=== PATIENT | male | born 1990 | race Hispanic/Latino ===

== ENCOUNTER 2021-06-13 21:23 | Inpatient (IN) | payer BC, MEDICARE ==
[2021-06-13 22:23] LABS: #Eosinphils 0.2 thou/uL (0.0-0.7); #Lymphocytes 0.8 thou/uL (1.20-3.40); #Monocytes 0.6 thou/uL (0.11-0.59); #Neutrophils 10.4 thou/uL (1.40-6.50); %Basophils 0.3 % (0.0-1.0); %Eosinophils 1.8 % (0.0-10.0); %Lymphocytes 6.9 % (21.0-51.0); %Monocytes 4.7 % (0.0-10.0); %Neutrophils 86.4 % (42.0-75.0); Hemoglobin 13.7 g/dL (14.0-18.0); Mean Corpuscular HGB CONC 33.2 g/dL (32.0-36.0); Mean Corpuscular Hemoglobin 29.4 pg (27.0-31.0); Mean Corpuscular Volume 88.3 fL (78.0-98.0); Mean Platelet Volume 8.5 fL (7.4-10.4); Platelet Count 240 thou/uL (130-400); RBC Distribution Width 13.8 % (11.5-14.5); Red Blood Cell (RBC) Count 4.67 mill/uL (4.70-6.10)
[2021-06-13 22:45] LABS: ALT (SGPT) 53 U/L (8-55); AST (SGOT) 55 U/L (5-34); Albumin 3.6 g/dL (3.5-5.0); Alkaline Phosphatase 110 U/L (40-110); Anion Gap 10 mmol/L (10-20); BUN (Urea Nitrogen) 49 mg/dL (8.9-20.6); Bilirubin, Total 0.5 mg/dL (0.2-1.2); CK (CPK) 237 U/L (30-200); Calc. Creatinine Clearance 0 mL/min (70-130); Calcium 8.3 mg/dL (7.8-10.44); Carbon Dioxide 28 mmol/L (22-29); Chloride 101 mmol/L (98-107); Globulin 3.7 g/dL (2.4-3.5); Glucose 289 mg/dL (70-105); Protein, Total 7.3 g/dL (6.0-8.3); Sodium 132 mmol/L (136-145)
[2021-06-13 22:49] LABS: Potassium 7.1 mmol/L (3.5-5.1)
[2021-06-13] MEDS ORDERED: Albuterol Sulfate 2.5 mg/3 ml Neb ONE (22:57)
[2021-06-13] MEDS ORDERED: Insulin Regular 300 UNITS/3 ML VIAL ONE (22:58)
[2021-06-13] MEDS ORDERED: Calcium Chloride 1 GM/10 ML Abboject SYRINGE ONE (22:58)
[2021-06-13] MEDS ORDERED: Sodium Bicarb 50 MEQ/50 ML Abboject 8.4% SYRINGE ONE (22:58)
[2021-06-14] MEDS ORDERED: LOKELMA 10 GM PACKET PO SCH ×2 (00:45→09:00)
[2021-06-14] MEDS ORDERED: Ondansetron PF 4 MG/2 ML Vial IVP PRN (01:52)
[2021-06-14] MEDS ORDERED: Acetaminophen 325 MG TAB PO PRN (01:52)
[2021-06-14] MEDS ORDERED: Dextrose 50% Abboject 50 ML SYRINGE SLOW IVP PRN (02:04)
[2021-06-14] MEDS ORDERED: Dextrose 5% in Water 1,000 ML IV PRN (02:04)
[2021-06-14] MEDS ORDERED: HumaLOG 300 UNITS/3 ML VIAL SC PRN ×2 (02:04)
[2021-06-14] MEDS ORDERED: hydrALAZINE 20 MG/ML VIAL SLOW IVP PRN (02:36)
[2021-06-14 02:46] VITALS: BMI 41.5
[2021-06-14 03:20] LABS: Bacteria/HPF None Seen HPF (None Seen); Bilirubin Negative (Negative); Blood, Urine Trace (Negative); Clarity Clear (Clear); Glucose, Urine (Dipstick) 70 mg/dL (Negative); Ketone, Urine Negative (Negative); Leukocyte Negative Leu/uL (Negative); Nitrite Negative (Negative); Protein, Urine (Dipstick) 100 mg/dL (Neg-Trace); RBC/HPF 0-3 HPF (0-3); Specific Gravity, Urine 1.008 (1.002-1.036); Squamous Epithelial 0-3 HPF (0-3); Urobilinogen Normal mg/dL (Less than 2); WBC/HPF 0-3 HPF (0-3); pH, Urine 7.5 (5.0-9.0)
[2021-06-14 03:23] LABS: Urine Culture Reflex No No
[2021-06-14 03:38] LABS: SARS-CoV-2 NAA Rapid Test Not Detected (NotDetected)
[2021-06-14 04:21] LABS: #Basophils 0.1 thou/uL (0.0-0.2); #Eosinphils 0.1 thou/uL (0.0-0.7); #Lymphocytes 1.3 thou/uL (1.20-3.40); #Monocytes 0.7 thou/uL (0.11-0.59); #Neutrophils 9.5 thou/uL (1.40-6.50); %Basophils 0.4 % (0.0-1.0); %Eosinophils 1.3 % (0.0-10.0); %Lymphocytes 10.7 % (21.0-51.0); %Monocytes 6.3 % (0.0-10.0); %Neutrophils 81.3 % (42.0-75.0); Hemoglobin 13.9 g/dL (14.0-18.0); Mean Corpuscular HGB CONC 32.5 g/dL (32.0-36.0); Mean Corpuscular Hemoglobin 28.7 pg (27.0-31.0); Mean Corpuscular Volume 88.2 fL (78.0-98.0); Mean Platelet Volume 8.6 fL (7.4-10.4); Platelet Count 233 thou/uL (130-400); RBC Distribution Width 13.8 % (11.5-14.5); Red Blood Cell (RBC) Count 4.85 mill/uL (4.70-6.10); White Blood Cell (WBC) Count 11.7 thou/uL (4.8-10.8)
[2021-06-14 04:47] LABS: Anion Gap 11 mmol/L (10-20); BUN (Urea Nitrogen) 41 mg/dL (8.9-20.6); Calc. Creatinine Clearance 104 mL/min (70-130); Carbon Dioxide 24 mmol/L (22-29); Chloride 104 mmol/L (98-107); Glucose 146 mg/dL (70-105); Potassium 4.2 mmol/L (3.5-5.1); Sodium 135 mmol/L (136-145)
[2021-06-14] MEDS ORDERED: Heparin 5,000 UNITS/ML VIAL SC SCH (09:00)
[2021-06-14] MEDS ORDERED: Famotidine 20 MG TAB PO SCH (09:00)
[2021-06-14] MEDS ORDERED: Torsemide 20 MG TAB PO SCH (09:15)
[2021-06-14] MEDS ORDERED: Famotidine 20 MG TAB ONE (10:19)
[2021-06-14 12:42] LABS: Anion Gap 14 mmol/L (10-20); BUN (Urea Nitrogen) 39 mg/dL (8.9-20.6); Calc. Creatinine Clearance 109 mL/min (70-130); Calcium 9.1 mg/dL (7.8-10.44); Carbon Dioxide 23 mmol/L (22-29); Chloride 103 mmol/L (98-107); Glucose 127 mg/dL (70-105); Potassium 4.1 mmol/L (3.5-5.1); Sodium 136 mmol/L (136-145)
[2021-06-14] MEDS ORDERED: Carvedilol 25 MG TAB PO SCH ×2 (17:00)
[2021-06-14] MEDS ORDERED: Senokot S 8.6-50 MG TAB PO SCH (21:00)
[2021-06-15] MEDS ORDERED: Carvedilol 25 MG TAB PO SCH (08:00)
[2021-06-15] MEDS ORDERED: Torsemide 20 MG TAB PO SCH (09:00)
== END 2021-06-14 15:31 | disposition home or self-care (01) | DRG 641 ==
LOC: ERS 21:23 → ERHOLD 06-14 00:53 → OBSVTOIN 06-14 02:37
PROVIDERS: ADMIT Internal Medicine; ATTEND Internal Medicine
DX: E87.5 Hyperkalemia (principal); N17.9 Acute kidney failure, unspecified; I13.0 Hypertensive heart and chronic kidney disease with heart failure and stage 1 through stage 4 chronic kidney disease, or unspecified chronic kidney disease; Z68.41 Body mass index [BMI] 40.0-44.9, adult; E87.1 Hypo-osmolality and hyponatremia; I50.9 Heart failure, unspecified; E11.22 Type 2 diabetes mellitus with diabetic chronic kidney disease; N18.30 Chronic kidney disease, stage 3 unspecified; D72.829 Elevated white blood cell count, unspecified; E11.65 Type 2 diabetes mellitus with hyperglycemia; E66.01 Morbid (severe) obesity due to excess calories; Z88.1 Allergy status to other antibiotic agents; Z88.8 Allergy status to other drugs, medicaments and biological substances; Z90.49 Acquired absence of other specified parts of digestive tract
CPT/HCPCS: 0240U; 36415; 36416; 80048; 80053; 81001; 82550; 85025; 93005; J1644; J1815; J7611

== ENCOUNTER 2024-12-20 10:42 | Inpatient (IN) | payer SELFPAY ==
[2024-12-20 11:18] LABS: #Basophils 0.06 10x3/uL (0.0-0.2); %Basophils 0.7 % (0.0-1.0); %Eosinophils 3.8 % (0.0-10.0); %Lymphocytes 5.5 % (21.0-51.0); %Monocytes 10.6 % (0.0-10.0); Hematocrit 32.5 % (42.0-52.0); Hemoglobin 10.1 g/dL (14.0-18.0); Mean Corpuscular HGB CONC 31.1 g/dL (32.0-36.0); Mean Corpuscular Hemoglobin 28.1 pg (27.0-31.0); Mean Corpuscular Volume 90.5 fL (78.0-98.0); Mean Platelet Volume 10.5 fL (7.4-10.4); Platelet Count 198 10x3/uL (130-400); RBC Distribution Width 18.3 % (11.5-14.5); Red Blood Cell (RBC) Count 3.59 mill/uL (4.70-6.10)
[2024-12-20 11:34] LABS: ALT (SGPT) 7 U/L (Less than 45); AST (SGOT) 18 U/L (11-34); Albumin 3.3 g/dL (3.1-4.5); Alkaline Phosphatase 123 U/L (40-110); Anion Gap 17 mmol/L (10-20); BUN (Urea Nitrogen) 60 mg/dL (8.9-20.6); Bilirubin, Total 0.6 mg/dL (0.3-1.2); Calc. Creatinine Clearance 0 mL/min (70-130); Carbon Dioxide 18 mmol/L (22-29); Chloride 109 mmol/L (98-107); Estimated GFR 14; Globulin 4.5 g/dL (2.4-3.5); Glucose 81 mg/dL (70-105); Lipase 76 U/L (8-78); Potassium 5.4 mmol/L (3.5-5.1); Protein, Total 7.8 g/dL (6.0-8.3); Sodium 139 mmol/L (136-145)
[2024-12-20 11:40] LABS: Troponin I 0.059 ng/mL (< 0.028)
[2024-12-20] MEDS ORDERED: Morphine 4 MG/ML VIAL ONE (11:54)
[2024-12-20] MEDS ORDERED: Ondansetron PF 4 MG/2 ML Vial ONE (11:54)
[2024-12-20] MEDS ORDERED: Aspirin Chewable 81 MG TAB ONE (11:55)
[2024-12-20 14:29] LABS: Bacteria/HPF None Seen HPF (None Seen); Bilirubin Negative (Negative); Blood, Urine Negative (Negative); CAUTI Indications for Culture Dysuria,urgency,freq; Clarity Clear (Clear); Glucose, Urine (Dipstick) Normal (Negative); Ketone, Urine Negative (Negative); Leukocyte Negative Leu/uL (Negative); Nitrite Negative (Negative); Protein, Urine (Dipstick) 200 mg/dL (Neg-Trace); RBC/HPF 0-3 HPF (0-3); Specific Gravity, Urine 1.011 (1.002-1.036); Squamous Epithelial 0-3 HPF (0-3); Urobilinogen Normal mg/dL (Less than 2); WBC/HPF 0-3 HPF (0-3); pH, Urine 6.5 (5.0-9.0)
[2024-12-20 14:32] LABS: Urine Culture Reflex No No
[2024-12-20] MEDS ORDERED: Acetaminophen 325 MG TAB PO PRN (17:23)
[2024-12-20] MEDS ORDERED: Acetaminophen 650 MG Suppository PR PRN (17:23)
[2024-12-20 18:21] LABS: Troponin I 0.071 ng/mL (< 0.028)
[2024-12-20] MEDS: Sodium Bicarbonate 150 MEQ in Dextrose 5% in Water 1,000 ML FS SCH (19:38)
[2024-12-20] MEDS: Furosemide 100 MG (10 mL) VIAL SLOW IVP SCH (19:45)
[2024-12-20] MEDS: Heparin 5,000 UNITS/ML VIAL SC SCH (19:45)
[2024-12-20 20:00] VITALS: BMI 35.5
[2024-12-20 20:16] LABS: Magnesium 2.1 mg/dL (1.6-2.6)
[2024-12-20 20:20] LABS: Troponin I 0.057 ng/mL (< 0.028)
[2024-12-20] MEDS: LOKELMA 10 GM PACKET PO SCH (21:35)
[2024-12-20] MEDS: EPOETIN ALFA-EPBX (ESRD) 10,000 UNITS/ML VIAL SC SCH (21:36)
[2024-12-20] MEDS: Preparation H Ointment 28 GM TUBE PR SCH (21:36)
[2024-12-21] MEDS ORDERED: LOKELMA 5 GM PACKET PO PRN (01:45)
[2024-12-21 04:33] LABS: #Basophils 0.06 10x3/uL (0.0-0.2); %Basophils 0.9 % (0.0-1.0); %Eosinophils 5.4 % (0.0-10.0); %Lymphocytes 6.3 % (21.0-51.0); %Monocytes 10.9 % (0.0-10.0); %Neutrophils 76.2 % (42.0-75.0); Hematocrit 29.7 % (42.0-52.0); Hemoglobin 9.1 g/dL (14.0-18.0); Mean Corpuscular HGB CONC 30.6 g/dL (32.0-36.0); Mean Corpuscular Hemoglobin 27.7 pg (27.0-31.0); Mean Corpuscular Volume 90.3 fL (78.0-98.0); Mean Platelet Volume 10.1 fL (7.4-10.4); Platelet Count 177 10x3/uL (130-400); RBC Distribution Width 18.2 % (11.5-14.5); Red Blood Cell (RBC) Count 3.29 mill/uL (4.70-6.10)
[2024-12-21 04:50] LABS: Anion Gap 17 mmol/L (10-20); BUN (Urea Nitrogen) 63 mg/dL (8.9-20.6); Calc. Creatinine Clearance 28 mL/min (70-130); Calcium 8.6 mg/dL (7.8-10.44); Carbon Dioxide 20 mmol/L (22-29); Cardiac Risk 3.2 (Less than 4.5); Chloride 108 mmol/L (98-107); Cholesterol 73 mg/dl (< 200 Desired); Estimated GFR 13; Glucose 69 mg/dL (70-105); HDL Cholesterol 23 mg/dL (>60 Neg Risk); LDL Cholesterol, Calculated 34 mg/dL; Magnesium 2.1 mg/dL (1.6-2.6); Sodium 140 mmol/L (136-145); Triglycerides 79 mg/dL (Less than 150)
[2024-12-21] MEDS: Furosemide 40 MG (4 mL) VIAL SLOW IVP SCH (05:41)
[2024-12-21] MEDS: hydrALAZINE 25 MG TAB PO SCH (08:10)
[2024-12-21] MEDS: Isosorbide Dinitrate 20 MG TAB PO SCH (08:10)
[2024-12-21] MEDS: Leflunomide 10 mg Tablet PO SCH (08:11)
[2024-12-21] MEDS: glipiZIDE XL 2.5 mg ER.TAB PO SCH (08:11)
[2024-12-21] MEDS: Calcitriol 0.25 MCG CAP PO SCH (08:11)
[2024-12-21 08:33] VITALS: BP 114/69; TEMP 98.1
[2024-12-21] MEDS ORDERED: Atorvastatin Calcium 20 MG TAB PO SCH (21:00)
== END 2024-12-21 10:30 | disposition home or self-care (01) | DRG 682 ==
LOC: ERS 10:42 → OBS 17:34 → OBSVTOIN 18:41
PROVIDERS: ADMIT Internal Medicine; ATTEND Hospitalist
DX: N17.9 Acute kidney failure, unspecified (principal); I50.23 Acute on chronic systolic (congestive) heart failure; I13.2 Hypertensive heart and chronic kidney disease with heart failure and with stage 5 chronic kidney disease, or end stage renal disease; R18.8 Other ascites; E87.20 Acidosis, unspecified; I42.8 Other cardiomyopathies; I5A Non-ischemic myocardial injury (non-traumatic); N18.5 Chronic kidney disease, stage 5; E11.22 Type 2 diabetes mellitus with diabetic chronic kidney disease; E87.5 Hyperkalemia; Z90.89 Acquired absence of other organs; Z98.890 Other specified postprocedural states; K64.9 Unspecified hemorrhoids; D63.8 Anemia in other chronic diseases classified elsewhere; Z95.810 Presence of automatic (implantable) cardiac defibrillator
CPT/HCPCS: 36415; 71045; 74176; 80048; 80053; 80061; 81001; 82274; 83605; 83690; 83735; 83880; 84443; 84484; 85025; 93005; J1644; J1940; J2270; J2405; J7070; Q5105